=== PATIENT | male | born 1975 | race American Indian/Alaskan Native ===

== ENCOUNTER 2020-07-05 16:49 | Emergency (ER) | payer SELFPAY ==
--- NOTE | 2020-07-05 17:09 | Event Note ---
ED Screening Note ED Screening Note: 45-year-old F Sammar[place] male with no reported story and presents emerged department complaining of right hip pain/lower back pain that radiates through to his right inguinal region ends at his right groin which is worse with palpation and range of motion unsure if it has any correlation to his his diet but denies any traumatic injury preceding the event. The event also started while he was sleeping. Reports no no dysuria no hematuria no no no diarrhea but states the pain has began to migrate across his entire abdomen which is now gone tender with palpation. This initial assessment/diagnostic orders/clinical plan/treatment(s) is/are subject to change based on patients health status, clinical progression and re- assessment by fellow clinical providers in the ED. Further treatment and workup at subsequent clinical providers discretion. Patient/guardian urged not to elope from the ED as their condition may be serious if not clinically assessed and managed. Initial orders include: Urinalysis, gastrointestinal labs
[2020-07-05] MEDS ORDERED: ONDANSETRON 4 MG ODT TAB PO STA (18:42)
[2020-07-05] MEDS ORDERED: KETOROLAC 60 MG/2 ML INJ IM STA (18:42)
[2020-07-05 19:13] LABS: Basophils % (Auto) 0.4 % (0.0-1.8); Eosinophils # (Auto) 0.1 K/mm3 (0.0-0.4); Eosinophils % (Auto) 1.3 % (0.0-4.3); Hematocrit 44.8 % (35.5-45.6); Hemoglobin 15.1 gm/dl (11.8-15.2); Lymphocytes # (Auto) 1.6 K/mm3 (1.2-5.4); Lymphocytes % (Auto) 16.7 % (13.4-35.0); Mean Corpuscular HGB Conc 34 % (32-34); Mean Corpuscular Volume 95 fl (84-94); Monocytes % (Auto) 10.7 % (0.0-7.3); Platelet Count 240 K/mm3 (140-440); Red Blood Count 4.73 M/mm3 (3.65-5.03)
[2020-07-05 19:34] LABS: Alanine Aminotransferase 22 units/L (7-56); Albumin 4.4 g/dL (3.9-5); BUN/Creatinine Ratio 10; Blood Urea Nitrogen 11 mg/dL (9-20); Calcium 9.5 mg/dL (8.4-10.2); Hemolysis Index 6
--- NOTE | 2020-07-05 20:13 | Emergency Department Report ---
ED General Adult HPI - General Chief complaint: Abdominal Pain Stated complaint: my side hurts i dont know if its my kidney PUI?: No Time Seen by Provider: 07/05/20 20:08 Source: patient Mode of arrival: Ambulatory Limitations: No Limitations - History of Present Illness Initial comments: The patient was evaluated in the emergency department for symptoms described in the history of present illness. He/she was evaluated in the context of the global COVID-19 pandemic, which necessitated consideration that the patient might be at risk for infection with the virus that causes COVID-19. Institutional protocols and algorithms that pertain to the evaluation of patients at risk for COVID-19 are in a state of rapid change based on information released by regulatory bodies including the CDC and federal and state organizations. These policies and algorithms were followed during the patient's care in the emergency department. Please note that these policies, procedures and recommendations changed on a rapid basis. During the history and physical examination, I am chaperoned by Amusement [employer] Mechanic Klever Tejeda This is a 45-year-old gentleman. He is not known to myself previously. The patient presents to the ER today with a complaint of nontraumatic sided/right flank pain, right lower quadrant pain, and right paralumbar back pain. The pain moves to his groin. He denies headache, neck pain, chest pain, vomiting, testicular pain. He is not sure if he is having dysuria. He denies IV drug use. He denies extremity weakness and numbness. He denies bladder or bowel retention or incontinence. He thinks his urine is strangely colored, "green." He thinks he may have had a history of "kidney infection", but is not certain. He denies rectal pain and dyschezia. He has not taken any pain medication for this. The pain starts in the right flank, moved to the back, into the front. Symptoms present for the past day or so. -: Gradual, days(s) Location: back (Right flank, right paralumbar region), abdomen, right Radiation: other (As per history of present illness) Quality: aching Consistency: intermittent Improves with: none Worsens with: none - Related Data Previous Rx's Medication Instructions Recorded Last Taken Type Acetaminophen [Non-Aspirin Extra 500 mg PO Q6HR PRN #30 tablet 07/05/20 Unknown Rx Strength] Ibuprofen [Motrin] 600 mg PO Q8H PRN #30 tablet 07/05/20 Unknown Rx Morphine Sulfate [Morphine Sulfate 7.5 mg PO Q6HR PRN #10 tablet 07/05/20 Unknown Rx IR] Ondansetron [Zofran Odt] 4 mg PO Q8HR PRN #20 tab.rapdis 07/05/20 Unknown Rx Tamsulosin [Flomax] 0.4 mg PO QDAY #30 cap 07/05/20 Unknown Rx Allergies Allergy/AdvReac Type Severity Reaction Status Date / Time No Known Allergies Allergy Unverified 07/05/20 17:06 ED Review of Systems ROS: Stated complaint: PAIN IN SIDE AND BETWEEN LEGS Other details as noted in HPI Constitutional: other (Denies loss of taste and smell). denies: fever Eyes: denies: eye discharge ENT: denies: epistaxis Respiratory: denies: cough Cardiovascular: denies: chest pain Gastrointestinal: abdominal pain Genitourinary: other (Strangely colored urine). denies: dysuria, testicular pain Musculoskeletal: back pain Neurological: denies: weakness Hematological/Lymphatic: denies: easy bleeding ED Past Medical Hx - Past Medical History Previous Medical History?: No - Surgical History Past Surgical History?: No - Social History Smoking Status: Current Every Day Smoker Substance Use Type: None - Medications Home Medications: Home Medications Medication Instructions Recorded Confirmed Last Taken Type Acetaminophen [Non-Aspirin Extra 500 mg PO Q6HR PRN #30 tablet 07/05/20 Unknown Rx Strength] Ibuprofen [Motrin] 600 mg PO Q8H PRN #30 tablet 07/05/20 Unknown Rx Morphine Sulfate [Morphine Sulfate 7.5 mg PO Q6HR PRN #10 tablet 07/05/20 Unknown Rx IR] Ondansetron [Zofran Odt] 4 mg PO Q8HR PRN #20 tab.rapdis 07/05/20 Unknown Rx Tamsulosin [Flomax] 0.4 mg PO QDAY #30 cap 07/05/20 Unknown Rx ED Physical Exam - General Limitations: No Limitations General appearance: alert, in no apparent distress - Head Head exam: Present: atraumatic, normocephalic - Eye Eye exam: Present: normal appearance, EOMI. Absent: nystagmus - ENT ENT exam: Present: normal exam, normal orophraynx, mucous membranes moist, normal external ear exam - Neck Neck exam: Present: normal inspection, full ROM. Absent: tenderness, meningismus - Respiratory Respiratory exam: Present: rhonchi (Faint rhonchi noted in the left lower lung field. Otherwise, clear lungs bilaterally.). Absent: respiratory distress, wheezes, rales, stridor, decreased breath sounds - Cardiovascular Cardiovascular Exam: Present: normal rhythm, bradycardia, normal heart sounds. Absent: tachycardia, irregular rhythm, systolic murmur, diastolic murmur, rubs, gallop - GI/Abdominal GI/Abdominal exam: Present: soft, tenderness (Right lower quadrant tender), guarding (Voluntary guarding right flank and right upper quadrant). Absent: distended, rebound, rigid - Rectal Rectal exam: Present: deferred - exam: Present: normal inspection, other (There is normal testicular lie. There is normal cremasteric reflex. There is no testicular tenderness. There is no testicular swelling) External exam: Present: normal external exam, other (Chaperoned by Oswald Tejeda) - Extremities Exam Extremities exam: Present: normal inspection, full ROM, other (2+ pulses noted in the bilateral upper and lower extremities. There is no palpable cord. negative Homans sign. Muscular compartments are soft. The pelvis is stable.). Absent: pedal edema, calf tenderness - Back Exam Back exam: Present: normal inspection, full ROM. Absent: tenderness, CVA tenderness (R), CVA tenderness (L), paraspinal tenderness, vertebral tenderness - Neurological Exam Neurological exam: Present: alert, normal gait, other (No facial droop. Tongue midline. Extraocular movements intact bilaterally. Facial sensation intact to light touch in V1, V2, V3 distribution bilaterally. 5 and a 5 strength in 4 extremities. Sensation intact to light touch in 4 extremities.). Absent: motor sensory deficit - Psychiatric Psychiatric exam: Present: normal affect, normal mood - Skin Skin exam: Present: warm, dry, intact, normal color. Absent: rash ED Course Vital Signs 07/05/20 07/05/20 07/05/20 17:08 17:09 19:00 Temperature 98.4 F 98.4 F Pulse Rate 47 L 45 L Respiratory 20 13 20 Rate Blood Pressure 156/79 156/79 Blood Pressure [Right] O2 Sat by Pulse 100 99 Oximetry 07/05/20 07/05/20 07/05/20 19:30 20:45 21:00 Temperature Pulse Rate 43 L Respiratory 16 16 15 Rate Blood Pressure Blood Pressure 137/79 [Right] O2 Sat by Pulse 98 Oximetry 07/05/20 07/06/20 22:00 00:00 Temperature Pulse Rate 43 L 45 L Respiratory 13 18 Rate Blood Pressure Blood Pressure 157/68 149/73 [Right] O2 Sat by Pulse 97 98 Oximetry - Reevaluation(s) Reevaluation #1: 07/05/20 20:50 Differential diagnosis, including but not limited to: Renal colic, appendicitis, radiculopathy, urinary tract infection Assessment and plan: 45-year-old gentleman, presenting with right flank, right lower quadrant pain, right paralumbar back pain, with a complaint of green- colored urine. The patient is afebrile with reassuring vital signs. Minimal lower abdominal tenderness. 5 out of 5 strength in the upper and lower extremities, with downgoing plantar reflexes in the bilateral lower extremities, sensation is intact to the bilateral upper and lower extremities, walks with a steady gait, no midline spinal tenderness, denies recreational IV drug use. No cardiac murmur is appreciated. This presentation is not consistent or suggestive of epidural compression syndrome, or epidural abscess. Patient will be ruled out for appendicitis, renal colic, and urinary tract infection. We ikmi l obtain urinalysis, CT scan of the abdomen pelvis. We will treat the patient's symptoms. We discussed this plan of care with the patient, who is verbalized understanding, and was amenable to this plan of care. 07/05/20 22:46 Patient reassessed multiple times. He is in no acute distress. Saturating 100% on room air. Elevated CK reviewed and appreciated. I have personally evaluated the patient's urine. It is somewhat dark. The patient does report some recent heavy lifting. Renal function within normal limits, muscular compartments soft,this does not meet the definition criteria for rhabdomyolysis. CT scan abdomen pelvis demonstrates presumed right-sided renal calculus. Incidental asymptomatic left lower pulmonary atelectasis reviewed and appreciated. Do not suspect aspiration based off of history. Patient endorses no pulmonary complaints. Urinalysis not consistent with urinary tract infection. Most likely diagnosis for patient's presentation with right flank and right lower quadrant pain is renal colic. He will need to follow-up with a primary care doctor for elevated CK, and a clinical material handler for his incidental pulmonary radiographic findings. ED Medical Decision Making - Lab Data Result diagrams: 07/05/20 17:30 07/05/20 17:30 Vital Signs 07/05/20 07/05/20 07/05/20 17:08 17:09 19:00 Temperature 98.4 F 98.4 F Pulse Rate 47 L 45 L Respiratory 20 13 20 Rate Blood Pressure 156/79 156/79 O2 Sat by Pulse 100 99 Oximetry 07/05/20 07/05/20 19:30 20:45 Temperature Pulse Rate Respiratory 16 16 Rate Blood Pressure O2 Sat by Pulse Oximetry Lab Results 07/05/20 07/05/20 Range/Units 17:30 17:30 WBC 9.8 (4.5-11.0) K/mm3 RBC 4.73 (3.65-5.03) M/mm3 Hgb 15.1 (11.8-15.2) gm/dl Hct 44.8 (35.5-45.6) % MCV 95 H (84-94) fl MCH 32 (28-32) pg MCHC 34 (32-34) % RDW 13.0 L (13.2-15.2) % Plt Count 240 (140-440) K/mm3 Lymph % (Auto) 16.7 (13.4-35.0) % [place] % (Auto) 10.7 H (0.0-7.3) % Eos % (Auto) 1.3 (0.0-4.3) % Baso % (Auto) 0.4 (0.0-1.8) % Lymph # (Auto) 1.6 (1.2-5.4) K/mm3 [place] # (Auto) 1.0 H (0.0-0.8) K/mm3 Eos # (Auto) 0.1 (0.0-0.4) K/mm3 Baso # (Auto) 0.0 (0.0-0.1) K/mm3 Seg Neutrophils % 70.9 H (40.0-70.0) % Seg Neutrophils # 7.0 (1.8-7.7) K/mm3 Sodium 138 (137-145) mmol/L Potassium 4.4 (3.6-5.0) mmol/L Chloride 101.4 (98-107) mmol/L Carbon Dioxide 27 (22-30) mmol/L Anion Gap 14 mmol/L BUN 11 (9-20) mg/dL Creatinine 1.1 (0.8-1.3) mg/dL Estimated GFR > 60 ml/min BUN/Creatinine Ratio 10 % Glucose 99 (75-100) mg/dL Calcium 9.5 (8.4-10.2) mg/dL Total Bilirubin 0.40 (0.1-1.2) mg/dL AST 33 (5-40) units/L ALT 22 (7-56) units/L Alkaline Phosphatase 93 (35-129) units/L Total Protein 7.2 (6.3-8.2) g/dL Albumin 4.4 (3.9-5) g/dL Albumin/Globulin Ratio 1.6 % Lipase 18 (13-60) units/L - EKG Data -: EKG Interpreted by Ia EKG shows normal: sinus rhythm Rate: bradycardia - EKG Data When compared to previous EKG there are: previous EKG unavailable 07/05/20 20:52 EKG interpreted at 17: 17 Sinus rhythm, bradycardia, 49 bpm. Normal axis, normal intervals, poor R wave progression, high left ventricular voltage. Early repolarization. Denies chest pain. This is an abnormal EKG. This is not a STEMI. - Radiology Data Radiology results: pending, report reviewed, [place] [address] Cat Scan Report Signed Patient: ANDREW DELUNA MR#: [id number] : 1975 Acct:[id number] Age/Sex: 45 / M ADM Date: 07/05/20 Loc: ED Attending Dr: Ordering Physician: EDDIE AGUIRRE MD Date of Service: 07/05/20 Procedure(s): CT abdomen pelvis w con Accession Number(s): [id number] cc: EDDIE AGUIRRE MD CT OF THE ABDOMEN AND PELVIS WITH INTRAVENOUS CONTRAST INDICATION / CLINICAL I NFORMATION: Right lower quadrant and right flank pain. TECHNIQUE: The patient received 100 cc Omnipaque [address] scans at this location are performed using CT dose reduction for ALARA by means of automated exposure control. COMPARISON: None available. FINDINGS: ABDOMEN: There is a delayed right nephrogram with mild right pelvocaliectasis and proximal ureterectasis. There is mild right perinephric soft tissue stranding. The left kidney is normal. There is mild benign-appearing nodularity/hyperplasia involving the left adrenal gland. The liver, spleen, gallbladder, bile ducts, pancreas, right adrenal gland and bowel demonstrate no significant abnormality. No adenopathy is pres ent. There is generalized increased density of the left lower lobe with mild hyperinflation of the left upper lobe. There is fluid throughout the left lower lobe bronchi proximally without discrete mass. PELVIS: There is a 2 mm calcification along the course of the right ureter at the level of the mid SI joint on axial image #134 of series #2 which probably represents a ureteral calculus. A similar calcification at that level on the left is in the internal iliac artery, however the right-sided calcification appears to be located anterior and superior to the iliac artery. The distal left ureter and urinary bladder are normal. The prostate gland is mildly enlarged. A normal appendix is present and there is no evidence of diverticulitis. I do not identify a hernia. There is mild degenerative disc disease at L4-5. IMPRESSION: 1. 2 mm calculus in the right ureter at the level of the mid SI joint is causing mild hydronephrosis. 2. Incomplete left lower lobe atelectasis. There are fluid-filled bronchi in the left lower lobe proximally. Differential diagnosis includes aspiration and bro nchial atresia. Nonemergent consultation with a clinical material handler is recommended. Signer Name: Riley Edwards MD Signed: 07/05/2020 10:36 PM Workstation Name: [id number] Transcribed By: RT Dictated By: Riley Edwards MD Electronically Authenticated By: Riley Edwards MD Signed Date/Time: 07/05/202235 DD/ 24 Critical care attestation.: If time is entered above; I have spent that time in minutes in the direct care of this critically ill patient, excluding procedure time. ED Disposition Clinical Impression: Right flank pain, Renal colic on right side, Elevated CK, Abnormal CT scan, lung Disposition: DC-01 TO HOME OR SELFCARE Is pt being admited?: No Does the pt Need Aspirin: No Condition: Good Instructions: Creatine Kinase Test, Incidental Abnormal Radiological Finding, Renal Colic Additional Instructions: Please drink 6 cups of water per day indefinitely. Do not take metformin medication for the next 2 days, if patient takes this medication. Patient had a CT scan of the abdomen pelvis which demonstrated a right-sided kidney stone, which is the most likely reason for the patient's right-sided flank and lower abdominal pain. Patient CT scan also demonstrated nonspecific left lower lung finding, which does not appear to be emergent, blood does require follow-up with an outpatient primary care doctor or clinical material handler. Laboratory studies today also demonstrated blood in the urine, likely from the kidney stone, and elevated CK, which typically indicates mild to moderate muscle breakdown. Please follow-up with your primary care doctor within the next 5 to 7 days for repeat checkup and evaluation, and repeat acquisition of CK level. Dr. Danielle is a local primary care doctor. Please follow-up with a urologist, such as those at [facility], within the next 5 to 7 days for repeat checkup and evaluation. Please follow-up with the clinical material handler, such as Dr. Cervantes, to follow-up on nonemergent incidental CT scan abnormality of the left lung. Recommend follow- up with the clinical material handler within the next 2 to 4 weeks. Please have a primary care doctor, urologist, and/or clinical material handler contact medical records department to obtain copies of laboratory studies and radiology studies, and follow-up on nonemergent incidental abnormal findings. Avoid excessively heavy lifting and strenuous physical activities. Please return to the emergency room right away with new pain, worsened pain, migration of pain, projectile vomiting, change in mental status, confusion, inability to tolerate liquid feeds, new, worsened or different symptoms not present on the initial emergency room evaluation. Patient may participate in light duty, but recommend avoidance of heavy lifting at work. If taking the morphine sulfate for extreme breakthrough pain, do not drive, consume alcohol, or make important decisions. Patient is also being prescribed ibuprofen and acetaminophen for pain, and Zofran for nausea if it develops. Flomax is a medication which may help the patient passes kidney stone. Prescriptions: Tamsulosin [Flomax] 0.4 mg PO QDAY #30 cap Morphine Sulfate [Morphine Sulfate IR] 7.5 mg PO Q6HR PRN #10 tablet PRN Reason: Pain , Severe (7-10) Ibuprofen [Motrin] 600 mg PO Q8H PRN #30 tablet PRN Reason: Pain Acetaminophen [Non-Aspirin Extra Strength] 500 mg PO Q6HR PRN #30 tablet PRN Reason: Pain , Severe (7-10) Ondansetron [Zofran Odt] 4 mg PO Q8HR PRN #20 tab.rapdis PRN Reason: Nausea Referrals: [facility] [Provider Group] - 3-5 Days MIESHA DANIELLE MD [Staff Physician] - 7-10 days MEREDITH CERVANTES MD [Staff Physician] - as needed Forms: Work/School Release Form(ED)
[2020-07-05] MEDS ORDERED: LACTATED RINGERS 1,000 ML IV ONE (20:22)
[2020-07-05] MEDS ORDERED: MORPHINE 4 MG/1 ML INJ IV ONE (20:22)
[2020-07-05] MEDS ORDERED: LACTATED RINGERS 2,000 ML IV ONE (21:30)
[2020-07-05 22:14] LABS: Bacteria,Urine 2+ /HPF (Negative); Bilirubin,Urine NEG (Negative); Blood,Urine LG (Negative); Color,Urine Amber (Yellow); Mucus,Urine 3+ /HPF; Urobilinogen,Urine < 2.0 mg/dL (<2.0)
[2020-07-05 22:17] LABS: RBC,Urine > 182.0 /HPF (0.0-6.0)
--- NOTE | 2020-07-05 22:41 | Cat Scan Report ---
CT OF THE ABDOMEN AND PELVIS WITH INTRAVENOUS CONTRAST INDICATION / CLINICAL INFORMATION: Right lower quadrant and right flank pain. TECHNIQUE: The patient received 100 cc Omnipaque [address] scans at this location are performed using CT dose reduction for ALARA by means of automated exposure control. COMPARISON: None available. FINDINGS: ABDOMEN: There is a delayed right nephrogram with mild right pelvocaliectasis and proximal ureterecta sis. There is mild right perinephric soft tissue stranding. The left kidney is normal. There is mild benign-appearing nodularity/hyperplasia involving the left adrenal gland. The liver, sp cassi, gallbladder, bile ducts, pancreas, right adrenal gland and bowel demonstrate no significant abn ormality. No adenopathy is present. There is generalized increased density of the left lower lobe with mild hyperinflation of the left up per lobe. There is fluid throughout the left lower lobe bronchi proximally without discrete mass. PELVIS: There is a 2 mm calcification along the course of the right ureter at the level of the mid SI joint on axial image #134 of series #2 which probably represents a ureteral calculus. A similar calc ification at that level on the left is in the internal iliac artery, however the right-sided calcific ation appears to be located anterior and superior to the iliac artery. The distal left ureter and urinary bladder are normal. The prostate gland is mildly enlarged. A marciano l appendix is present and there is no evidence of diverticulitis. I do not identify a hernia. There i s mild degenerative disc disease at L4-5. IMPRESSION: 1. 2 mm calculus in the right ureter at the level of the mid SI joint is causing mild hydronephrosis. 2. Incomplete left lower lobe atelectasis. There are fluid-filled bronchi in the left lower lobe prox imally. Differential diagnosis includes aspiration and bronchial atresia. Nonemergent consultation wi th a sock drier is recommended. Signer Name: Riley Edwards MD Signed: 07/05/2020 10:36 PM Workstation Name: [id number]
[2020-07-06 00:23] VITALS: BP 149/73
--- NOTE | 2020-07-06 10:42 | Electrocardiograph Report ---
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
== END 2020-07-06 00:26 | disposition home or self-care (01) ==
LOC: ED 16:49
DX: N23 Unspecified renal colic (principal); R74.8 Abnormal levels of other serum enzymes; R91.8 Other nonspecific abnormal finding of lung field; F17.200 Nicotine dependence, unspecified, uncomplicated; Z79.899 Other long term (current) drug therapy
CPT/HCPCS: 36415; 74177; 80053; 81001; 82550; 83690; 85025; 87086; 93005; 96361; 96372; 96374; 99283; J1885; J2270; J7120; Q9967; Q0162